=== PATIENT | female | born 1950 | race Asian ===

== ENCOUNTER 2020-06-06 17:19 | Outpatient (CLI) | payer MEDICARE, SELFPAY ==
--- NOTE | ~2020-06-06 | CT_ITS ---
EXAMINATION: CT abdomen pelvis wo con DATE: 06/06/2020 17:41 INDICATION: Generalized abdominal pain TECHNIQUE: Computed tomography (CT) of the abdomen and pelvis was performed without intravenous contr ast. The dose-length product was 269.61 mGy-cm. Automated exposure control and iterative reconstructi on technique were employed. COMPARISON: None. FINDINGS: There is dependent atelectasis. Cardiomegaly. Small pericardial effusion. No significant pl eural effusion. Mild atherosclerosis without aneurysm. No lymphadenopathy. Gallbladder is contracted. The liver, spleen, pancreas, adrenal glands and kidneys are unremarkable. Gallbladder is present. Non obstructive bowel gas pattern. No evidence for appendicitis or diverticulitis. No free air or free fl uid. Severe lower lumbar spondylosis. IMPRESSION: 1. No acute abdominal abnormality. 2: Cardiomegaly. Small pericardial effusion. Reviewed, dictated and finalized at location [facility].
== END 2020-06-06 17:20 | disposition home or self-care (01) ==
PROVIDERS: PCP Internal Medicine; Visit Provider Internal Medicine
DX: R10.9 Unspecified abdominal pain (principal); I51.7 Cardiomegaly
CPT/HCPCS: 74176

== ENCOUNTER → 2022-09-04 15:04 | Outpatient (CLI) | payer MEDICARE, SELFPAY ==
--- NOTE | ~2022-09-04 | MR_ITS ---
MRI of the right shoulder Technique: Axial proton-density fat-sat images, coronal proton density fat-sat and T2 fat-sat images, and sagittal T1-weighted and T2 fat-sat images were acquired. Clinical History: Pain Findings: There is moderate degenerative change at the AC joint. Coracoclavicular and coracohumeral l igament are probably intact. Coracoacromial ligament is somewhat poorly delineated. There are complete, full-thickness tears of the supraspinatus and infraspinatus tendons, which are re tracted to the level of the glenoid. Fluid-filled gap measures approximately 4.6 x 3.4 cm in extent. There is suspected focal low-grade articular surface partial tear of the subscapularis tendon. Tendon of the long head of the biceps is intact. Glenoid labrum is intact, without evidence of tear. Inferior glenohumeral ligament is intact. No degenerative change of the glenohumeral joint. There is small glenohumeral joint effusion with fluid passing through the large rotator cuff defect into the s ubacromial/subdeltoid bursa. There is fluid distention of the subscapularis recess. There is mild fat ty atrophy of the supraspinatus muscle belly. Impression: Complete, full-thickness retracted tears of the supraspinatus and infraspinatus tendons, as detailed above. Associated mild fatty atrophy of the supraspinatus muscle belly. Suspected low-grade articular surface partial tear of the subscapularis tendon at its midportion. Moderate AC joint degenerative change. Reviewed, dictated and finalized at [facility]. [employer] Impression: Complete, full-thickness retracted tears of the supraspinatus and infraspinatus tendons, as detailed above. Associated mild fatty atrophy of the supraspinatus muscle belly. Suspected low-grade articular surface partial tear of the subscapularis tendon at its midportion. Moderate AC joint degenerative change.
== END ==
PROVIDERS: PCP Internal Medicine; Visit Provider Orthopaedic Surgery
DX: S46.811A Strain of other muscles, fascia and tendons at shoulder and upper arm level, right arm, initial encounter (principal); M19.011 Primary osteoarthritis, right shoulder; X58.XXXA Exposure to other specified factors, initial encounter
CPT/HCPCS: 73221